=== PATIENT | female | born 1970 | race Caucasian/White ===

== ENCOUNTER 2016-09-01 23:13 | Emergency (ER) | payer BC ==
[~2016-09-01] VITALS: Ht 165.1 cm; Wt 72.0 kg
[2016-09-01 23:25] VITALS: BP 125/80; PULSE 84; RESP 18; TEMP 97.6; O2SAT 99
[2016-09-02] MEDS ORDERED: HYDR-3516 PO (00:03)
[2016-09-02] MEDS ORDERED: VITA500T PO (00:03)
[2016-09-02] MEDS ORDERED: CELE200C PO (00:03)
[2016-09-02] MEDS ORDERED: LEVO-86 PO (00:03)
[2016-09-02] MEDS ORDERED: MULT-120 PO (00:03)
[2016-09-02] MEDS ORDERED: BIOT10TA PO (00:03)
[2016-09-02] MEDS ORDERED: NEUR300C PO (00:03)
--- NOTE | 2016-09-02 00:11 | PD ---
HPI Chief Complaint: Abdominal Pain Time Seen by Provider: 00:00 Travel History International Travel<30 days: No Contact w/Intl Traveler<30days: No Traveled to known affect area: No History of Present Illness HPI The patient is a 45-year-old female that complains of midline epigastric pain for 2 hours. She has a history of gastric sleeve. She drank some champagne and ate some strawberries prior to this pain. She denies any fever, nausea, vomiting or diarrhea. She denies any melanotic or bloody stools. The patient has been taking Tums and nonsteroidal anti-inflammatory medications. She has been taking the NSAIDs for her back pain for some time now. PFSH Past Medical History Endocrine: Yes (thyroid) Gastrointestinal Disorders: Yes (gastric sleeve in june ) Tetanus Vaccination: Unknown Influenza Vaccination: No ?: Not LMP: oophorectomy Past Surgical History Appendectomy: Yes Section: Yes (x4) Cholecystectomy: Yes Gynecologic Surgery: Yes (oophorectmy) Social History Alcohol Use: Yes (occ) Tobacco Use: No Allergies-Medications (Allergen,Severity, Reaction): Coded Allergies: Levaquin (Verified Allergy, Severe, Respiratory Failure, 09/01/16) Uncoded Allergies: any "cains" (lidocain) (Allergy, Severe, Respiratory Failure, 09/02/16) Reported Meds & Prescriptions Reported Meds & Active Scripts Active Reported Multivitamin Women (Multiple Vitamins W/ Minerals) 1 Tab Tab 1 Tab PO DAILY Biotin 10 Mg Tab 10 Mg PO DAILY Vitamin C (Ascorbic Acid) 500 Mg Tab 3,000 Mg PO DAILY Hydrocodone-Acetaminophen 5-325 mg Tab 1 Tab PO Q6H PRN Neurontin (Gabapentin) 300 Mg Cap 300 Mg PO BID Celebrex (Celecoxib) 200 Mg Cap 200 Mg PO DAILY Synthroid (Levothyroxine Sodium) 137 Mcg Tab 137 Mcg PO DAILY Review of Systems Except as stated in HPI: all other systems reviewed are Neg Physical Exam Narrative GENERAL: Well-nourished, well-developed patient in slight apparent distress with her midline epigastric pain. Her vital signs are normal. SKIN: Warm and dry. HEAD: Normocephalic. EYES: No scleral icterus. No injection or drainage. NECK: Supple, trachea midline. No JVD or lymphadenopathy. CARDIOVASCULAR: Regular rate and rhythm without murmurs, gallops, or rubs. RESPIRATORY: Breath sounds equal bilaterally. No accessory muscle use. GASTROINTESTINAL: Abdomen soft, with slight tenderness to direct palpation in the midline epigastrium, nondistended. No guarding or rebound is present. MUSCULOSKELETAL: No cyanosis, or edema. BACK: Nontender without obvious deformity. No CVA tenderness. Data Data Last Documented VS Vital Signs Date Time Temp Pulse Resp B/P Pulse Ox O2 Delivery O2 Flow Rate FiO2 09/02/16 00:18 Room Air 09/01/16 23:25 97.6 84 18 125/80 99 Orders Complete Blood Count With Diff (09/02/16:13) Comprehensive Metabolic Panel (09/02/16:13) Lipase (09/02/16:13) Iv Access Insert/Monitor (09/02/16:) Oximetry (09/02/16:13) Pantoprazole Inj (Protonix Inj) (09/02/16 00:15) Sodium Chlor 0.9% 1000 Ml Inj (Ns 1000 M (09/02/16:13) Sodium Chloride 0.9% Flush (Ns Flush) (09/02/16 00:15) Famotidine Inj (Pepcid Inj) (09/02/16 00:15) Al-Mag Hy-Si 40-40-4 Mg/Ml Liq (Mag-Al P (09/02/16:15) Labs Laboratory Tests Test 09/02/16 00:15 White Blood Count 9.5 TH/MM3 Red Blood Count 4.78 MIL/MM3 Hemoglobin 13.5 GM/DL Hematocrit 40.6 % Mean Corpuscular Volume 84.8 FL Mean Corpuscular Hemoglobin 28.1 PG Mean Corpuscular Hemoglobin 33.2 % Concent Red Cell Distribution Width 12.2 % Platelet Count 246 TH/MM3 Mean Platelet Volume 7.5 FL Neutrophils (%) (Auto) 57.9 % Lymphocytes (%) (Auto) 29.3 % Monocytes (%) (Auto) 11.2 % Eosinophils (%) (Auto) 1.1 % Basophils (%) (Auto) 0.5 % Neutrophils # (Auto) 5.5 TH/MM3 Lymphocytes # (Auto) 2.8 TH/MM3 Monocytes # (Auto) 1.1 TH/MM3 Eosinophils # (Auto) 0.1 TH/MM3 Basophils # (Auto) 0.0 TH/MM3 CBC Comment DIFF FINAL Differential Comment Sodium Level 144 MEQ/L Potassium Level 4.3 MEQ/L Chloride Level 108 MEQ/L Carbon Dioxide Level 29.5 MEQ/L Anion Gap 7 MEQ/L Blood Urea Nitrogen 21 MG/DL Creatinine 0.55 MG/DL Estimat Glomerular Filtration 118 ML/MIN Rate Random Glucose 101 MG/DL Calcium Level 8.5 MG/DL Total Bilirubin 0.3 MG/DL Aspartate Amino Transf 164 U/L (AST/SGOT) Alanine Aminotransferase 94 U/L (ALT/SGPT) Alkaline Phosphatase 124 U/L Total Protein 6.6 GM/DL Albumin 3.5 GM/DL Lipase 7132 U/L [facility] Medical Decision Making Medical Screen Exam Complete: Yes Emergency Medical Condition: Yes Medical Record Reviewed: Yes Interpretation(s) The complete metabolic profile shows a BUN of 21, AST of 164, ALT of 94, alkaline phosphatase of 124 but is otherwise normal. The lipase is 7132. The CBC is normal. Differential Diagnosis Gastritis, ulcer pain, colitis Narrative Course The patient likely has a pancreatitis. It is now 0100 and the patient still has pain. She does not want any pain medications. She is now slightly nauseated. The patient states she cannot be admitted. She will have to sign out AGAINST MEDICAL ADVICE. She is advised about the complications of pancreatitisdehydration, pseudocyst formation, abscess formation, bowel obstructions and . The cause of this pancreatitis is unknown. Perhaps she has a biliary obstruction. She does not give the history of alcohol abuse for this to be suspected. Viral pancreatitis is possible but she gives no history of viral illness recently. She has been on a number of drugs including Neurontin recently. 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 We want to admit you but you could not be admitted at this time. If you change your mind we will admit you. Disposition: AGAINST MEDICAL ADVICE Condition: Stable Jose Mckeon MD Sep 02, 2016 00:11
[2016-09-02] MEDS ORDERED: SODIUM CHLOR 0.9% 1000 ML INJ 1,000 ML IV SCH (00:13)
[2016-09-02] MEDS ORDERED: ALUMINUM/MAGNESIUM/SIMETH 30 ML CUP PO ONE (00:15)
[2016-09-02] MEDS ORDERED: FAMOTIDINE 20 MG/2 ML VIAL IV PUSH ONE (00:15)
[2016-09-02] MEDS ORDERED: SODIUM CHLORIDE 0.9% FLUSH 5 ML FLUSH IVF PRN (00:15)
[2016-09-02] MEDS ORDERED: PANTOPRAZOLE SODIUM 40 MG VIAL IVP ONE (00:15)
[2016-09-02 00:34] LABS: AUTOMATED NEUTROPHIL # 5.5 TH/MM3 (1.8-7.7); BASOPHIL % 0.5 % (0.0-2.0); EOSINOPHIL # 0.1 TH/MM3 (0-0.4); EOSINOPHIL % 1.1 % (0.0-4.0); HEMATOCRIT 40.6 % (35.0-46.0); HEMO FLAGS DIFF FINAL; LYMPH % 29.3 % (9.0-44.0); LYMPHOCYTE # 2.8 TH/MM3 (1.0-4.8); MEAN CELL VOLUME 84.8 FL (80.0-100.0); MEAN CORPUSCULAR HEMOGLOBIN 28.1 PG (27.0-34.0); MEAN CORPUSCULAR HGB CONC 33.2 % (32.0-36.0); MONO % 11.2 % (0.0-8.0); NEUT % 57.9 % (16.0-70.0); PLATELET COUNT 246 TH/MM3 (150-450); RED BLOOD COUNT 4.78 MIL/MM3 (4.00-5.30); RED CELL DISTRIBUTION WIDTH 12.2 % (11.6-17.2); WHITE BLOOD COUNT 9.5 TH/MM3 (4.0-11.0)
[2016-09-02 00:40] VITALS: BP 122/76; PULSE 82; RESP 17
[2016-09-02 00:45] LABS: CHLORIDE 108 MEQ/L (98-107); POTASSIUM 4.3 MEQ/L (3.5-5.1); SODIUM (NA) 144 MEQ/L (136-145)
[2016-09-02 00:49] LABS: ANION GAP 7 MEQ/L (5-15); BICARBONATE 29.5 MEQ/L (21.0-32.0); BLOOD UREA NITROGEN 21 MG/DL (7-18)
[2016-09-02 00:52] LABS: ALT (GPT) 94 U/L (10-53); AST (GOT) 164 U/L (15-37); GLOMERULAR FILTRATION RATE 118 ML/MIN (>89)
[2016-09-02 00:53] LABS: TOTAL BILIRUBIN ADULT 0.3 MG/DL (0.2-1.0)
[2016-09-02 00:55] LABS: ALKALINE PHOSPHATASE 124 U/L (45-117)
[2016-09-02] MEDS ORDERED: ZOFR4TAB3 SL (21:52)
== END 2016-09-02 01:24 | disposition left against medical advice (07) ==
LOC: PHED 23:13
DX: K85.90 Acute pancreatitis without necrosis or infection, unspecified (principal); Z98.84 Bariatric surgery status
CPT/HCPCS: 80053; 83690; 85025; 96361; 96374; 96375; 99284; C9113; J7030

== ENCOUNTER 2016-09-02 16:46 | Emergency (ER) | payer BC ==
[~2016-09-02] VITALS: Ht 165.1 cm; Wt 5.0 kg
[2016-09-02] VITALS (7 sets, daily range): BP systolic 105–140; BP diastolic 68–82; PULSE 71–89; RESP 16–18; TEMP 97.8; O2SAT 95–100
[~2016-09-02 16:46] MED LIST: BIOT10TA PO; CELE200C PO; HYDR-3516 PO; LEVO-86 PO; MULT-120 PO; NEUR300C PO; VITA500T PO
[2016-09-02] MEDS ORDERED: SODIUM CHLOR 0.9% 1000 ML INJ 1,000 ML IV SCH (18:55)
[2016-09-02] MEDS ORDERED: ACETAMINOPHEN 325 MG TAB PO ONE (19:00)
[2016-09-02] MEDS ORDERED: SODIUM CHLORIDE 0.9% FLUSH 5 ML FLUSH IVF PRN (19:00)
[2016-09-02] MEDS ORDERED: ONDANSETRON HCL 4 MG/2 ML VIAL IVP ONE (19:00)
[2016-09-02] MEDS ORDERED: PANTOPRAZOLE SODIUM 40 MG VIAL IVP ONE (19:00)
--- NOTE | 2016-09-02 19:01 | PD ---
HPI Chief Complaint: Abdominal Pain Time Seen by Provider: 18:40 Travel History International Travel<30 days: No Contact w/Intl Traveler<30days: No Traveled to known affect area: No History of Present Illness HPI This 45-year-old female is complaining of abdominal pain. She was seen in the emergency department last night. Last night she was eating strawberries and drinking champagne and she had a sudden onset of epigastric pain. She only had one glass of champagne. She is not a heavy drinker area pain was located in the epigastric area and went to the back. It has been fairly constant since it started. She had lab work done last night. Her lipase came back at 7132.. She did not have a CT scan and she left the hospital against advice. She felt she cannot be admitted at that time she had something she had to take care of. He is here now. She says that since last night the pain has been fairly constant. It is quite severe. It is aggravated by eating. She has a history of cholecystectomy in 2009. She had a 3. She's had an appendectomy. She had a bariatric sleeve done in [place] several years ago. She had back surgery done last May and recently was started on Neurontin because of nerve pain. She was also started on Celebrex the day before the pain started PFSH Past Medical History Hx Anticoagulant Therapy: No Diminished Hearing: No Diverticulitis: Yes (diverticulosis not divericulitis) Endocrine: Yes (thyroid) Gastrointestinal Disorders: Yes (gastric sleeve in june ) Ulcer: Yes Tetanus Vaccination: > 5 Years Influenza Vaccination: No ?: Not Past Surgical History Appendectomy: Yes Section: Yes (x4) Cholecystectomy: Yes Gynecologic Surgery: Yes (oophorectmy) Social History Alcohol Use: Yes (occ) Tobacco Use: No Substance Use: No Allergies-Medications (Allergen,Severity, Reaction): Coded Allergies: Levaquin (Verified Allergy, Severe, Respiratory Failure, 09/02/16) Uncoded Allergies: any "cains" (lidocain) (Allergy, Severe, Respiratory Failure, 09/02/16) Reported Meds & Prescriptions Reported Meds & Active Scripts Active Reported Multivitamin Women (Multiple Vitamins W/ Minerals) 1 Tab Tab 1 Tab PO DAILY Biotin 10 Mg Tab 10 Mg PO DAILY Vitamin C (Ascorbic Acid) 500 Mg Tab 3,000 Mg PO DAILY Hydrocodone-Acetaminophen 5-325 mg Tab 1 Tab PO Q6H PRN Neurontin (Gabapentin) 300 Mg Cap 300 Mg PO BID Celebrex (Celecoxib) 200 Mg Cap 200 Mg PO DAILY Synthroid (Levothyroxine Sodium) 137 Mcg Tab 137 Mcg PO DAILY Review of Systems General / Constitutional: No: Fever, Chills Eyes: No: Diploplia, Blurred Vision HENT: No: Headaches, Vertigo Cardiovascular: No: Chest Pain or Discomfort, Palpitations Respiratory: No: Cough, Shortness of Breath Gastrointestinal: Positive: Nausea, Abdominal Pain, No: Vomiting, Diarrhea Genitourinary: No: Urgency, Frequency Musculoskeletal: Positive: Pain, No: Myalgias, Arthralgias Skin: No Rash Neurologic: No: Weakness Psychiatric: No: Anxiety Physical Exam Narrative GENERAL: Well-developed female SKIN: Warm and dry. HEAD: Atraumatic. Normocephalic. EYES: Pupils equal and round. No scleral icterus. No injection or drainage. ENT: No nasal bleeding or discharge. Mucous membranes pink and moist. NECK: Trachea midline. No JVD. CARDIOVASCULAR: Regular rate and rhythm. No murmur appreciated. RESPIRATORY: No accessory muscle use. Clear to auscultation. Breath sounds equal bilaterally. GASTROINTESTINAL: Abdomen soft, there is some epigastric tenderness without guarding or rigidity, nondistended. Hepatic and splenic margins not palpable. MUSCULOSKELETAL: No obvious deformities. No clubbing. No cyanosis. No edema. NEUROLOGICAL: Awake and alert. No obvious cranial nerve deficits. Motor grossly within normal limits. Normal speech. PSYCHIATRIC: Appropriate mood and affect; insight and judgment normal. Data Data Last Documented VS Vital Signs Date Time Temp Pulse Resp B/P Pulse Ox O2 Delivery O2 Flow Rate FiO2 09/02/16 21:25 75 18 123/79 98 Room Air 09/02/16 16:48 97.8 Orders Complete Blood Count With Diff (09/02/16 18:55) Comprehensive Metabolic Panel (09/02/16 18:55) Lipase (09/02/16 18:55) Prothrombin Time / Inr (Pt) (09/02/16 18:55) Act Partial Throm Time (Ptt) (09/02/16 18:55) Urinalysis - C+S If Indicated (09/02/16 18:55) Ct Abd/Pel W Iv Contrast(Rout) (09/02/16 18:55) Iv Access Insert/Monitor (09/02/16 18:55) Oximetry (09/02/16 18:55) Ondansetron Inj (Zofran Inj) (09/02/16 19:00) Pantoprazole Inj (Protonix Inj) (09/02/16 19:00) Sodium Chlor 0.9% 1000 Ml Inj (Ns 1000 M (09/02/16 18:55) Sodium Chloride 0.9% Flush (Ns Flush) (09/02/16 19:00) Acetaminophen (Tylenol) (09/02/16 19:00) Labs Laboratory Tests Test 09/02/16 19:20 White Blood Count 8.6 TH/MM3 Red Blood Count 4.93 MIL/MM3 Hemoglobin 14.0 GM/DL Hematocrit 41.6 % Mean Corpuscular Volume 84.5 FL Mean Corpuscular Hemoglobin 28.3 PG Mean Corpuscular Hemoglobin 33.5 % Concent Red Cell Distribution Width 12.0 % Platelet Count 257 TH/MM3 Mean Platelet Volume 7.4 FL Neutrophils (%) (Auto) 59.7 % Lymphocytes (%) (Auto) 29.6 % Monocytes (%) (Auto) 9.2 % Eosinophils (%) (Auto) 0.6 % Basophils (%) (Auto) 0.9 % Neutrophils # (Auto) 5.1 TH/MM3 Lymphocytes # (Auto) 2.5 TH/MM3 Monocytes # (Auto) 0.8 TH/MM3 Eosinophils # (Auto) 0.1 TH/MM3 Basophils # (Auto) 0.1 TH/MM3 CBC Comment DIFF FINAL Differential Comment Prothrombin Time 11.4 SEC Prothromb Time International 1.0 RATIO Ratio Activated Partial 25.3 SEC Thromboplast Time Urine Color YELLOW Urine Turbidity CLEAR Urine pH 5.5 Urine Specific [place] 1.017 Urine Protein NEG mg/dL Urine Glucose (UA) NEG mg/dL Urine Ketones 15 mg/dL Urine Occult Blood TRACE Urine Nitrite NEG Urine Bilirubin NEG Urine Leukocyte Esterase NEG Urine RBC 0-3 /hpf Urine WBC 0-2 /hpf Urine Squamous Epithelial 0-5 /hpf Cells Urine Bacteria NONE /hpf Microscopic Urinalysis Comment CULT NOT INDICATED Sodium Level 143 MEQ/L Potassium Level 3.9 MEQ/L Chloride Level 106 MEQ/L Carbon Dioxide Level 31.1 MEQ/L Anion Gap 6 MEQ/L Blood Urea Nitrogen 13 MG/DL Creatinine 0.57 MG/DL Estimat Glomerular Filtration 114 ML/MIN Rate Random Glucose 91 MG/DL Calcium Level 8.8 MG/DL Total Bilirubin 0.7 MG/DL Aspartate Amino Transf 367 U/L (AST/SGOT) Alanine Aminotransferase 359 U/L (ALT/SGPT) Alkaline Phosphatase 203 U/L Total Protein 7.3 GM/DL Albumin 4.0 GM/DL Lipase 246 U/L [facility] Medical Decision Making Medical Screen Exam Complete: Yes Emergency Medical Condition: Yes Medical Record Reviewed: Yes Differential Diagnosis Differential includes pancreatitis Narrative Course Patient does not have a gallbladder. Her drinking history does not suggest that this is the cause of her pancreatitis. She was started on Celebrex the day before the pain started and rarely be associated with pancreatitis. Her pancreatitis has resolved rapidly. Her lipase today is 230. Her transaminases have increase slightly compared to yesterday. She has an appointment with a GI doctor on Monday. I think it is reasonable for her to be released. She is to follow-up with that doctor Monday I have given a copy of her lab work and CT scan. The CT scan is normal Diagnosis Primary Impression: Pancreatitis Qualified Code: K85.90 - Acute pancreatitis without infection or necrosis, unspecified pancreatitis type Scripts Ondansetron Odt (Zofran Odt)4 Mg Tab4 Mg SL Q6HR PRN (Nausea/Vomiting) #14 TAB Ref 0 Prov:Tomy Mcnulty MD 09/02/16 Disposition: DISCHARGE HOME Condition: Stable Tomy Mcnulty MD Sep 02, 2016 19:01
[2016-09-02 19:34] LABS: AUTOMATED NEUTROPHIL # 5.1 TH/MM3 (1.8-7.7); BASOPHIL # 0.1 TH/MM3 (0-0.2); BASOPHIL % 0.9 % (0.0-2.0); EOSINOPHIL # 0.1 TH/MM3 (0-0.4); EOSINOPHIL % 0.6 % (0.0-4.0); HEMATOCRIT 41.6 % (35.0-46.0); HEMO FLAGS DIFF FINAL; LYMPH % 29.6 % (9.0-44.0); LYMPHOCYTE # 2.5 TH/MM3 (1.0-4.8); MEAN CELL VOLUME 84.5 FL (80.0-100.0); MEAN CORPUSCULAR HEMOGLOBIN 28.3 PG (27.0-34.0); MEAN CORPUSCULAR HGB CONC 33.5 % (32.0-36.0); MONO % 9.2 % (0.0-8.0); NEUT % 59.7 % (16.0-70.0); PLATELET COUNT 257 TH/MM3 (150-450); RED BLOOD COUNT 4.93 MIL/MM3 (4.00-5.30); WHITE BLOOD COUNT 8.6 TH/MM3 (4.0-11.0)
[2016-09-02 19:36] LABS: BLOOD, URINE TRACE (NEG); GLUCOSE,URINE NEG (NEG); KETONE, URINE 15 mg/dL (NEG); NITRITE,URINE NEG (NEG); PH, URINE 5.5 (5.0-8.5)
[2016-09-02 19:40] LABS: CHLORIDE 106 MEQ/L (98-107); POTASSIUM 3.9 MEQ/L (3.5-5.1); SODIUM (NA) 143 MEQ/L (136-145)
[2016-09-02 19:42] LABS: URINE COLOR YELLOW (YELLW/STRAW); WBC, URINE 0-2 /hpf (0-5)
[2016-09-02 19:43] LABS: COMMENT (UR) CULT NOT INDICATED; CULTURE IF INDICATED CULT NOT INDICATED; RBC, URINE 0-3 /hpf (0-3); SQUAMOUS EPITHELIAL CELL URINE 0-5 /hpf (0-5)
[2016-09-02 19:46] LABS: ANION GAP 6 MEQ/L (5-15); BICARBONATE 31.1 MEQ/L (21.0-32.0); BLOOD UREA NITROGEN 13 MG/DL (7-18)
[2016-09-02 19:47] LABS: APTT (PATIENT) 25.3 SEC (24.3-30.1); PROTHROMBIN TIME - PATIENT 11.4 SEC (9.8-11.6)
[2016-09-02 20:21] LABS: ALKALINE PHOSPHATASE 203 U/L (45-117); ALT (GPT) 359 U/L (10-53); AST (GOT) 367 U/L (15-37); GLOMERULAR FILTRATION RATE 114 ML/MIN (>89); TOTAL BILIRUBIN ADULT 0.7 MG/DL (0.2-1.0)
--- NOTE | 2016-09-02 21:37 | RADHPO ---
EXAM DATE/TIME: 09/02/2016 20:50 [facility] COMPARISON: No previous studies available for comparison. INDICATIONS : Epigastric pain. IV CONTRAST: 94 cc Omnipaque 350 (iohexol) IV ORAL CONTRAST: No oral contrast ingested. RADIATION DOSE: 10.37 CTDIvol (mGy) MEDICAL HISTORY : Diverticulosis. SURGICAL HISTORY : Appendectomy. Cholecystectomy.Gastric sleeve. Oophrectomy. ENCOUNTER: Initial ACUITY: 1 day PAIN SCALE: 7/10 LOCATION: Abdomen. TECHNIQUE: Volumetric scanning of the abdomen and pelvis was performed. Using automated exposure control and ad justment of the mA and/or kV according to patient size, radiation dose was kept as low as reasonably achievable to obtain optimal diagnostic quality images. FINDINGS: There is linear scarring at the lung bases a small intrapulmonary lymph node on the right. Previous cholecystectomy with minimal biliary ductal dilatation. Spleen, adrenals, kidneys and pancre as unremarkable. No free fluid. No bowel obstruction. No adenopathy. Mild constipation. No acute bony abnormalities. Postop changes of gastric sleeve procedure and appendectomy. CONCLUSION: 1. No acute findings. Postoperative cholecystectomy, gastric sleeve procedure, appendectomy and repor tedly surgical removal of the ovary. 2. Mild constipation. Prieto Malhotra MD on September 02, 2016 at 21:32 Board Certified Radiologist. This report was verified electronically.
[2016-09-02] MEDS ORDERED: ZOFR4TAB3 SL (21:52)
[2016-09-02] MEDS ORDERED: IOHEXOL 350 MG/ML 10 ML VIAL (for RAD DIAG) IV ONE (23:37)
== END 2016-09-02 22:36 | disposition home or self-care (01) ==
LOC: PHED 16:46
DX: K85.90 Acute pancreatitis without necrosis or infection, unspecified (principal); K57.90 Diverticulosis of intestine, part unspecified, without perforation or abscess without bleeding
CPT/HCPCS: 74177; 80053; 81001; 83690; 85025; 85610; 85730; 96361; 96374; 96375; 99284; C9113; J2405; J7030; Q9967